=== PATIENT | male | born 2000 | race Two or more races ===

== ENCOUNTER 2022-06-24 03:11 | Inpatient (IN) | payer OTHER ==
[~2022-06-24] VITALS: Ht 170.2 cm; Wt 65.8 kg
[2022-06-24] MEDS ORDERED: ONDANSETRON HCL/PF 4 MG/2 ML VIAL ONE (03:29)
[2022-06-24] MEDS ORDERED: IV NS 0.9% 1,000 ML BAG IV ONE (03:30)
[2022-06-24] MEDS ORDERED: ONDANSETRON HCL/PF 4 MG/2 ML VIAL IVP ONE (03:30)
--- NOTE | 2022-06-24 03:33 | NUR ---
BLOOD COLLECTED AND SENT TO LAB
[2022-06-24 03:53] LABS: BASOPHILS # (AUTO) 0.1 K/uL (0.0-0.2); EOSINOPHILS % (AUTO) 0.4 % (0.0-6.0); HEMATOCRIT 48 % (39-51); LYMPHOCYTES # (AUTO) 2.2 K/uL (0.8-4.8); LYMPHOCYTES % (AUTO) 23.6 % (20.0-44.0); MEAN CORPUSCULAR HGB CONC 33 g/dl (31.0-36.0); MEAN CORPUSCULAR VOLUME 94 fL (80-96); MONOCYTES # (AUTO) 0.5 K/uL (0.1-1.30); MONOCYTES % (AUTO) 5.3 % (2.0-12.0); NEUTROPHILS # (AUTO) 6.4 K/uL (1.8-8.9); NEUTROPHILS % (AUTO) 69.7 % (43.0-81.0); PLATELET COUNT (AUTO) 269 K/uL (150-450); RED BLOOD CELL COUNT(AUTO) 5.17 MIL/uL (4.5-6.0); WHITE BLOOD COUNT (AUTO) 9.3 K/uL (4.3-11.0)
[2022-06-24 04:07] LABS: ALBUMIN 4.8 g/dL (3.4-5.0); BILIRUBIN,DIRECT 0.1 mg/dL (0.0-0.2); BILIRUBIN,TOTAL 0.2 mg/dL (0.2-1.0); CALCIUM, SERUM 9.7 mg/dL (8.5-10.1); CREATININE 1.3 mg/dL (0.6-1.3); TOTAL PROTEIN, SERUM 8.4 g/dL (6.4-8.2)
[2022-06-24 04:18] LABS: POTASSIUM 2.7 mmol/L (3.5-5.1)
--- NOTE | 2022-06-24 04:18 | NUR ---
2.7 potassium, md aware
[2022-06-24] MEDS ORDERED: POTASSIUM CHLORIDE 10 MEQ/50 ML PREMIXED IVPB FOR PERIPHERAL LINE IV ONE (04:30)
[2022-06-24] MEDS ORDERED: POTASSIUM CL. PREMIX PERIPHER. 50 ML ONE ×2 (05:22→07:47)
--- NOTE | 2022-06-24 05:30 | NUR ---
1ST BAG OF KCL 10MEQ/50ML ATTACHED TO IV RYNE ON RIGHT AC G18. END TIME 0630H
[2022-06-24 06:02] LABS: MAGNESIUM 2.5 mg/dL (1.8-2.4)
[2022-06-24 06:06] LABS: PHOSPHORUS 0.4 mg/dL (2.5-4.9)
--- NOTE | 2022-06-24 06:06 | NUR ---
CRITICAL LAB; PHOS 0.4. AWARE.
--- NOTE | 2022-06-24 06:29 | NUR ---
STARTED 2NG BAG OF 10 MEQ POTASSIUM CHLORIDE. WILL ENDORSE TO AM SHIFT TO CONTINUE AND FOLLOW THROUGH COMPLETION OF 40MEQ; 2 MORE BAGS TO BE GIVEN.
[2022-06-24] MEDS ORDERED: ONDANSETRON HCL/PF 4 MG/2 ML VIAL IVP PRN (06:30)
[2022-06-24] MEDS ORDERED: POTASSIUM PHOSPHATE MM 15 MMOL in IV NS 0.9% 250 ML IV SCH (06:30)
[2022-06-24] MEDS ORDERED: ACETAMINOPHEN 325 MG TABLET PO PRN (06:30)
[2022-06-24] MEDS ORDERED: IV NS 0.9% 1,000 ML IV PRN (06:30)
--- NOTE | 2022-06-24 07:08 | NUR ---
COVID ANTIGEN COLLECTED AND SENT TO LAB
--- NOTE | 2022-06-24 07:44 | NUR ---
Patient AOx4 able to expres her concerns. Patient with no signs of distress or discomfort. Discussed plan on care, pt verbalized agreement.
--- NOTE | 2022-06-24 07:49 | NUR ---
Called pharmacy regarding RX order for Potassium phos. [facility] [place] states they will make it and deliver.
--- NOTE | 2022-06-24 08:14 | NUR ---
Administered IV meds, no signs of infiltration. Educated patient on importance of medication and plan of care, patient verbalized agreement.
[2022-06-24] MEDS ORDERED: PANTOPRAZOLE 40 MG VIAL IV SCH (09:00)
--- NOTE | 2022-06-24 09:01 | NUR ---
CALLED LAB RE PENDING COVID RESULT
--- NOTE | 2022-06-24 09:27 | NUR ---
ROOM 325-2
--- NOTE | 2022-06-24 09:53 | NUR ---
Called [facility] for report, will be given at bedside. Pt cleared to transfer
--- NOTE | 2022-06-24 10:00 | NUR ---
Critical labs were reported by lab, shift mechanic made notes but critical form was not completed. Please see documentation on Notes.
[2022-06-24 10:45] VITALS: BP 147/83
[2022-06-24 11:30] VITALS: BP 116/76
[2022-06-24 13:10] LABS: CALCIUM, SERUM 8.5 mg/dL (8.5-10.1); CREATININE 0.8 mg/dL (0.6-1.3); PHOSPHORUS 5.2 mg/dL (2.5-4.9); POTASSIUM 3.9 mmol/L (3.5-5.1)
[2022-06-24 15:08] VITALS: BP 115/71
--- NOTE | 2022-06-24 16:05 | NUR ---
PATIENT IS A/O X4. ABLE TO MAKE NEEDS KNOWN. AMBULATORY WITH STEADY GAIT. INDEPENDENT WITH REPOSITIONING. PATIENT CAME IN FOR HYPOKALEMIA AND LOW PHOSPHORUS. ELECTROLYTES REPLACED. RECENT LAB SHOWED K+ 3.9, PH 5.2. DISCHARGE INSTRUCTIONS AND HEALTH TEACHINGS GIVEN, PT VERBALIZED UNDERSTANDING. PATIENT WILL BE PICKED UP BY HIS PARTNER.
== END 2022-06-24 16:45 | disposition home or self-care (01) | DRG 641 ==
LOC: ER 03:18 → TELE 09:45
PROVIDERS: ADMIT Nurse Practitioner Family; ATTEND Nurse Practitioner Family
DX: E87.6 Hypokalemia (principal); E87.0 Hyperosmolality and hypernatremia; E83.39 Other disorders of phosphorus metabolism; F10.129 Alcohol abuse with intoxication, unspecified; J45.909 Unspecified asthma, uncomplicated; Z20.822 Contact with and (suspected) exposure to COVID-19; F14.90 Cocaine use, unspecified, uncomplicated
CPT/HCPCS: 36415; 80048-TC; 80076-TC; 82010-TC; 83735-TC; 84100-TC; 85025-TC; 87081-TC; A4223; C9113; C9803; G0378; G0480; J2405; J3480; J3490; J7030; J7050